=== PATIENT | male | born 2000 | race Caucasian/White ===

== ENCOUNTER 2021-05-16 20:22 | Inpatient (IN) ==
[2021-05-16 23:16] LABS: ABS Eosinophils 0.1 10^3/ul (0-0.6); ABS Lymphocytes 2.3 10^3/ul (1.0-4.8); ABS Monocytes 0.4 10^3/ul (0-0.8); Eosinophil % 2.2 %; Hematocrit 46 % (42-52); Hemoglobin 15.7 g/dL (14.0-18.0); Lymphocyte % 39.8 %; Mean Corpuscular HGB Conc 34 g/dL (31-36); Mean Corpuscular Hemoglobin 31 pg (27-31); Mean Corpuscular Volume 92 fL (80-94); Mean Platelet Volume 8.9 fL (7.4-10.4); Nucleated Red Blood Cells % 0.1; Platelet Count 199 10^3/uL (150-450); Red Blood Count 4.99 10^6 /uL (4.18-5.48); Red Cell Distribution Width 14 % (10-15); White Blood Count 5.9 10^3/uL (3.5-10.8)
[2021-05-16 23:21] LABS: Urine Appearance Clear; Urine Bilirubin Negative (Negative); Urine Blood Negative (Negative); Urine Color Yellow; Urine Glucose Negative (Negative); Urine Ketones Negative (Negative); Urine Nitrite Negative (Negative); Urine Protein Negative (Negative); Urine Specific Gravity 1.012 (1.002-1.030); Urine Urobilinogen Negative (Negative)
[2021-05-16 23:33] LABS: ALT 19 U/L (7-52); AST 25 U/L (13-39); Albumin 4.9 g/dL (3.2-5.2); Albumin/Globulin Ratio 2.3 (1-3); Alkaline Phosphatase 59 U/L (35-149); Anion Gap 9 mmol/L (2-11); Blood Urea Nitrogen 10 mg/dL (6-24); CO2 Carbon Dioxide 26 mmol/L (22-32); Calcium 9.2 mg/dL (8.6-10.3); Chloride 104 mmol/L (101-111); Globulin 2.1 g/dL (2-4); Glucose 82 mg/dL (70-100); Potassium 3.6 mmol/L (3.5-5.0); Sodium 139 mmol/L (135-145); eGFR CKD-EPI 129.6 (>60)
[2021-05-16 23:42] LABS: Urine Benzodiazepine Screen None Detected (None Detect); Urine Cannabinoids Screen Presumptive Positive (None Detect); Urine Opiates Screen None Detected (None Detect)
[2021-05-17 00:03] LABS: Acetaminophen < 15 mcg/mL; Alcohol, S 103 mg/dL (<13); Salicylate < 2.50 mg/dL (<30)
[2021-05-17 00:17] LABS: TSH Ultra Thyroid Stim Horm 0.97 mcIU/mL (0.34-5.60)
[2021-05-17] MEDS ORDERED: Al Hydrox/Mg Hydrox/Simet LIQ 30 ML UDC PO PRN (05:26)
[2021-05-17] MEDS ORDERED: Lorazepam PYXIS KEY PRN (05:27)
[2021-05-17] MEDS ORDERED: LORazepam IM 0-6 mg for WAM protocol IM SCH (06:00)
[2021-05-17] MEDS ORDERED: Nicotine GUM 2MG FRUIT FLAVOR PO PRN (06:00)
[2021-05-17] MEDS ORDERED: LORazepam PO 0-6 for WAM protocol PO SCH (06:00)
[2021-05-17] MEDS: Vitamin THERAPEUTIC TAB PO SCH (09:08)
[2021-05-18 07:50] VITALS: BP 124/78
[2021-05-18] MEDS: Vitamin THERAPEUTIC TAB PO SCH (08:43)
== END 2021-05-18 15:57 | DRG 775 ==
LOC: ED 20:22 → EDHOLD 05-17 03:30 → BSU 05-17 04:57
PROVIDERS: ADMIT Psychiatry & Neurology Psychiatry; ATTEND Psychiatry & Neurology Psychiatry